=== PATIENT | female | born 1990 | race Hispanic/Latino ===

== ENCOUNTER 2016-09-10 16:59 | Emergency (ER) | payer OTHER ==
[~2016-09-10] VITALS: Ht 157.5 cm; Wt 56.7 kg
[~2016-09-10 16:59] MED LIST: DOXYCYCLINE HY100 M4 PO
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
[2016-09-10 19:25] VITALS: BP 120/73
== END 2016-09-10 19:26 ==
LOC: ERH 16:59
DX: S16.1XXA Strain of muscle, fascia and tendon at neck level, initial encounter (principal); S39.012A Strain of muscle, fascia and tendon of lower back, initial encounter; V49.50XA Passenger injured in collision with unspecified motor vehicles in traffic accident, initial encounter
CPT/HCPCS: 72050; 81025